=== PATIENT | male | born 1975 | race Caucasian/White ===

== ENCOUNTER 2017-03-09 06:40 | Emergency (ER) | payer OTHER ==
[2017-03-09 07:11] LABS: CHLORIDE,CL 105 mmol/L (98-110); SODIUM,NA 141 mmol/L (136-146)
[2017-03-09] MEDS ORDERED: Diltiazem 25 MG/5 ML SDV IVPUSH ONE (07:12)
[2017-03-09] MEDS ORDERED: Sodium Chloride 0.9% 1,000 ML IV ONE (07:13)
--- NOTE | 2017-03-09 08:49 | EDM.PDOC ---
ED HPI GENERAL MEDICAL PROBLEM - General Chief Complaint: Cardiovascular Problem Stated Complaint: IRREGULAR HEARTBEAT Time Seen by Provider: 03/09/17 08:45 Source of Information: Reports: Patient - History of Present Illness INITIAL COMMENTS - FREE TEXT/NARRATIVE: HISTORY AND PHYSICAL: History of present illness: [Patient with history of atrial fibrillation and anxiety presents anxious with atrial fibrillation with RVR rate into the 140s, he is in no distress had complained of some palpitation and chest tightness earlier prior to arrival he had taken his last clonazepam. 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 Past medical history: As per history of present illness and as reviewed below otherwise noncontributory. Surgical history: As per history of present illness and as reviewed below otherwise noncontributory. Social history: No reported history of drug or alcohol abuse. Family history: As per history of present illness and as reviewed below otherwise noncontributory. Physical exam: HEENT: Atraumatic, normocephalic, pupils reactive, negative for conjunctival pallor or scleral icterus, mucous membranes moist, throat clear, neck supple, nontender, trachea midline. Lungs: Clear to auscultation, breath sounds equal bilaterally, chest nontender. Heart: S1S2, regular, negative for clicks, rubs, or JVD. Abdomen: Soft, nondistended, nontender. Negative for masses or hepatosplenomegaly. Negative for costovertebral tenderness. Pelvis: Stable nontender. Genitourinary: Deferred. Rectal: Deferred. Extremities: Atraumatic, negative for cords or calf pain. Neurovascular unremarkable. Neuro: Awake, alert, oriented. Cranial nerves II through XII unremarkable. Cerebellum unremarkable. Motor and sensory unremarkable throughout. Exam nonfocal. Diagnostics: [CBC CMP cardiac enzymes EKG A. fib with RVR Repeat EKG] normal sinus rhythm Therapeutics: [1 L normal saline bolus Cardizem was ordered but not provided as he converted prior to initiating this medication Clonazepam 1 mg taken by patient which he takes 1 mg as needed provided by his primary care ] Impression: [A. fib with RVR converted distress normal sinus rhythm] Definitive disposition and diagnosis as appropriate pending reevaluation and review of above. chest Pain Score (Numeric/FACES): 3 - Related Data Allergies Allergy/AdvReac Type Severity Reaction Status Date / Time No Known Allergies Allergy Verified 03/09/17 06:43 Home Meds: Home Meds DULoxetine [Cymbalta] 60 mg PO DAILY 03/09/17 [History] clonazePAM [Clonazepam] 1 mg PO ASDIRECTED PRN 03/09/17 [History] Past Medical History - Past Health History Medical/Surgical History: Denies Medical/Surgical History Cardiovascular History: Reports: Arrhythmia, Other (See Below) Other Cardiovascular History: 14 years ago Psychiatric History: Reports: Panic Attack, PTSD Social & Family History - Family History Family Medical History: Noncontributory - Tobacco Use Smoking Status *Q: Never Smoker - Caffeine Use Caffeine Use: Reports: None - Recreational Drug Use Recreational Drug Use: No ED ROS GENERAL - Review of Systems Review Of Systems: ROS reveals no pertinent complaints other than HPI. ED EXAM, GENERAL - Physical Exam Exam: See Below Course - Vital Signs Last Recorded V/S: Last Vital Signs Temp 97 F 03/09/17 06:40 Pulse 76 03/09/17 07:40 Resp 16 03/09/17 07:40 BP 125/84 03/09/17 07:40 Pulse Ox 98 03/09/17 07:40 - Orders/Labs/Meds Orders: Active Orders 24 hr Category Date Time Status EKG Documentation Completion [RC] STAT Care 03/09/17 06:50 Active Chest 1V Frontal [CR] Stat Exams 03/09/17 06:50 Taken Labs: Laboratory Tests 03/09/17 03/09/17 03/09/17 Range/Units 06:45 06:45 06:45 WBC 5.86 (4.0-11.0) K/uL RBC 5.51 (4.50-5.90) M/uL Hgb 16.7 (13.0-17.0) g/dL Hct 47.8 (38.0-50.0) % MCV 86.8 (80.0-98.0) fL MCH 30.3 (27.0-32.0) pg MCHC 34.9 (31.0-37.0) g/dL RDW Std Deviation 42.6 (28.0-62.0) fl RDW Coeff of Jude 14 (11.0-15.0) % Plt Count 269 (150-400) K/uL MPV 10.00 (7.40-12.00) fL Neut % (Auto) 52.2 (48.0-80.0) % Lymph % (Auto) 31.9 (16.0-40.0) % [place] % (Auto) 13.0 (0.0-15.0) % Eos % (Auto) 2.6 (0.0-7.0) % Baso % (Auto) 0.3 (0.0-1.5) % Neut # (Auto) 3.1 (1.4-5.7) K/uL Lymph # (Auto) 1.9 (0.6-2.4) K/uL [place] # (Auto) 0.8 (0.0-0.8) K/uL Eos # (Auto) 0.2 (0.0-0.7) K/uL Baso # (Auto) 0.0 (0.0-0.1) K/uL Nucleated RBC % 0.0 /100WBC Nucleated RBCs # 0 K/uL INR 1.05 (0.86-1.11) Sodium 141 (136-146) mmol/L Potassium 4.6 (3.5-5.1) mmol/L Chloride 105 (98-110) mmol/L Carbon Dioxide 24 (21-31) mmol/L BUN 12 (6.0-23.0) mg/dL Creatinine 1.0 (0.6-1.5) mg/dL Est Cr Clr Drug Dosing 108.86 mL/min Estimated GFR (MDRD) > 60.0 ml/min Glucose 108 (60-110) mg/dL Calcium 10.2 (8.8-10.8) mg/dL Total Bilirubin 0.5 (0.1-1.5) mg/dL AST 24 (5-40) IU/L ALT 33 (8-54) IU/L Alkaline Phosphatase 90 (40-150) Troponin I < 0.10 (0.0-0.29) NG/ML Total Protein 7.9 (6.0-8.0) g/dL Albumin 4.6 (3.5-5.0) g/dL Globulin 3.3 (2.0-3.5) g/dL Albumin/Globulin Ratio 1.4 (1.3-2.8) Meds: Medications Discontinued Medications Generic Name Dose Route Start Last Admin Trade Name Michiq PRN Reason Stop Dose Admin Diltiazem HCl 20 mg 03/09/17 07:12 03/09/17 07:56 Diltiazem IVPUSH 03/09/17 07:13 Not Given ONETIME ONE Sodium Chloride 1,000 mls @ 999 mls/hr 03/09/17 07:13 03/09/17 07:49 Normal Saline IV 03/09/17 08:13 999 mls/hr STAT ONE Administration Departure - Departure Time of Disposition: 08:48 Disposition: Home, Self-Care 01 Condition: Good Clinical Impression: Atrial fibrillation, Anxiety Referrals: PCP,None [Primary Care Provider] - Additional Instructions: Medication as directed Return if symptoms persist or worsen Follow-up with primary care in 2 weeks The following information is given to patients seen in the emergency department who are being discharged to home. This information is to outline your options for follow-up care. We provide all patients seen in our emergency department with a follow-up referral. The need for follow-up, as well as the timing and circumstances, are variable depending upon the specifics of your emergency department visit. If you don't have a primary care physician on staff, we will provide you with a referral. We always advise you to contact your personal physician following an emergency department visit to inform them of the circumstance of the visit and for follow-up with them and/or the need for any referrals to a consulting specialist. The emergency department will also refer you to a specialist when appropriate. This referral assures that you have the opportunity for follow-up care with a specialist. All of these measure are taken in an effort to provide you with optimal care, which includes your follow-up. Under all circumstances we always encourage you to contact your private physician who remains a resource for coordinating your care. When calling for follow-up care, please make the office aware that this follow-up is from your recent emergency room visit. If for any reason you are refused follow-up, please contact the [facility] emergency department at and asked to speak to the emergency department charge nurse.
--- NOTE | 2017-03-09 14:50 | CR ---
EXAM DATE: 03/09/17 PATIENT'S AGE: 41 Patient: CLIFFORD GAYLE Facility: [place], [place] Site . Site : 1975 Study: XRay Chest [id number]/17/2018 7:03:10 AM Ordering Physician: Doctor Hartley Final Report: INDICATION: palpitations TECHNIQUE: Chest 1 view. COMPARISON: None FINDINGS: Cardiovascular and mediastinum: Heart size and vasculature are normal in caliber and appearance. Mediastinum is within normal limits. Lungs and pleural space: Lungs are clear. No sign of infiltrate or mass. No sign of pleural effusion. No pneumothorax. Bones and soft tissues: No significant findings. IMPRESSION: Unremarkable chest. Dictated by: Jack Curry MD @ 03/09/2017 07:11:32 (Electronic Signature) Report Signed by Proxy. HUTCHINGS PSYCHIATRIC CENTERChacho
== END 2017-03-09 08:58 | disposition home or self-care (01) ==
LOC: MW.ED 06:40
DX: I48.91 Unspecified atrial fibrillation (principal); F41.9 Anxiety disorder, unspecified; Z79.899 Other long term (current) drug therapy
CPT/HCPCS: 36415; 71045; 80053; 84484; 85025; 85610; 93005; 96360; 99285; J7040; 99284

== ENCOUNTER 2017-04-09 11:20 | Emergency (ER) | payer OTHER ==
[2017-04-09] MEDS ORDERED: HYDROmorphone 2 MG/ML Syringe IVPUSH ONE (11:30)
--- NOTE | 2017-04-09 11:35 | EDM.PDOC ---
ED HPI GENERAL MEDICAL PROBLEM - General Chief Complaint: Upper Extremity Injury/Pain Stated Complaint: DISLOCATED SHOULDER Time Seen by Provider: 04/09/17 11:34 Source of Information: Reports: Patient - History of Present Illness INITIAL COMMENTS - FREE TEXT/NARRATIVE: HISTORY AND PHYSICAL: History of present illness: [Patient presents with a dislocated shoulder on the left after falling out of his truck No head injury or loss of consciousness previous dislocation same shoulder No fever nausea vomiting chills sweats no chest pain shortness breath headache dizziness palpitation about a urine symptoms ] Injury occurred at [employer], patient's boss/employers with him at current as they were going to lunch although this is not a Workmen' s Comp. injury Review of systems: As per history of present illness and below otherwise all systems reviewed and negative. Past medical history: As per history of present illness and as reviewed below otherwise noncontributory. Surgical history: As per history of present illness and as reviewed below otherwise noncontributory. Social history: No reported history of drug or alcohol abuse. Family history: As per history of present illness and as reviewed below otherwise noncontributory. Physical exam: HEENT: Atraumatic, normocephalic, pupils reactive, negative for conjunctival pallor or scleral icterus, mucous membranes moist, throat clear, neck supple, nontender, trachea midline. Lungs: Clear to auscultation, breath sounds equal bilaterally, chest nontender. Heart: S1S2, regular, negative for clicks, rubs, or JVD. Abdomen: Soft, nondistended, nontender. Negative for masses or hepatosplenomegaly. Negative for costovertebral tenderness. Pelvis: Stable nontender. Genitourinary: Deferred. Rectal: Deferred. Extremities: Atraumatic, negative for cords or calf pain. Neurovascular unremarkable. Left upper extremity step-off noted limb neurovascularly intact, post reduction remains neurovascularly intact Neuro: Awake, alert, oriented. Cranial nerves II through XII unremarkable. Cerebellum unremarkable. Motor and sensory unremarkable throughout. Exam nonfocal. Diagnostics: [Left shoulder complete, postreduction film ] Therapeutics: [Dilaudid 1 mg IV Valium 5 mg IV--not required hence not provided Sling for comfort Rest ice ibuprofen Follow-up with orthopedist in one week Reduction performed by myself with modified steels technique no complication no complaint ] Impression: [Left shoulder dislocation postreduction] Definitive disposition and diagnosis as appropriate pending reevaluation and review of above. Left Shoulder Pain Score (Numeric/FACES): 10 - Related Data Allergies Allergy/AdvReac Type Severity Reaction Status Date / Time Penicillins Allergy Cannot Verified 04/09/17 11:31 Remember Home Meds: Home Meds DULoxetine [Cymbalta] 60 mg PO DAILY 03/09/17 [History] clonazePAM [Clonazepam] 1 mg PO ASDIRECTED PRN 03/09/17 [History] Past Medical History - Past Health History Medical/Surgical History: Denies Medical/Surgical History Cardiovascular History: Reports: Arrhythmia, Other (See Below) Other Cardiovascular History: 14 years ago Psychiatric History: Reports: Panic Attack, PTSD Social & Family History - Family History Family Medical History: Noncontributory - Tobacco Use Smoking Status *Q: Never Smoker - Caffeine Use Caffeine Use: Reports: None - Recreational Drug Use Recreational Drug Use: No Review of Systems - Review of Systems Review Of Systems: ROS reveals no pertinent complaints other than HPI. ED EXAM, GENERAL - Physical Exam Exam: See Below Course - Vital Signs Last Recorded V/S: Last Vital Signs Temp 97.1 F 04/09/17 11:36 Pulse 108 H 04/09/17 11:36 Resp BP 134/89 04/09/17 11:36 Pulse Ox 98 04/09/17 11:36 - Orders/Labs/Meds Orders: Active Orders 24 hr Category Date Time Status Shoulder Comp Lt [CR] Stat Exams 04/09/17 11:32 Taken Shoulder Comp Lt [CR] Stat Exams 04/09/17 12:08 Taken Meds: Medications Discontinued Medications Generic Name Dose Route Start Last Admin Trade Name Freq PRN Reason Stop Dose Admin Diazepam 5 mg 04/09/17 11:30 Valium IV 04/09/17 11:31 ONETIME ONE Hydromorphone HCl 1 mg 04/09/17 11:30 04/09/17 11:46 Dilaudid IVPUSH 04/09/17 11:31 Not Given ONETIME ONE Hydromorphone HCl 1 mg 04/09/17 11:39 04/09/17 11:41 Dilaudid IV 04/09/17 11:40 1 mg ONETIME ONE Administration Hydromorphone HCl Confirm 04/09/17 11:38 04/09/17 11:42 Dilaudid Administered 04/09/17 11:39 Not Given Dose 1 mg .ROUTE .STK-MED ONE Departure - Departure Time of Disposition: 12:23 Disposition: Home, Self-Care 01 Condition: Good Clinical Impression: Dislocation of left shoulder joint - Discharge Information Referrals: PCP,None [Primary Care Provider] - Forms: ED Department Discharge Additional Instructions: Rest Ice 20 minute intervals 3 times daily as needed Ibuprofen 400 mg to 800 mg by mouth 3 times daily up to 10 days as needed Her comfort Right hand duty only Follow-up with orthopedist, call phone number below to schedule appropriate follow-up [facility] [address], [address] [place] [address] my orthopedic The following information is given to patients seen in the emergency department who are being discharged to home. This information is to outline your options for follow-up care. We provide all patients seen in our emergency department with a follow-up referral. The need for follow-up, as well as the timing and circumstances, are variable depending upon the specifics of your emergency department visit. If you don't have a primary care physician on staff, we will provide you with a referral. We always advise you to contact your personal physician following an emergency department visit to inform them of the circumstance of the visit and for follow-up with them and/or the need for any referrals to a consulting specialist. The emergency department will also refer you to a specialist when appropriate. This referral assures that you have the opportunity for follow-up care with a specialist. All of these measure are taken in an effort to provide you with optimal care, which includes your follow-up. Under all circumstances we always encourage you to contact your private physician who remains a resource for coordinating your care. When calling for follow-up care, please make the office aware that this follow-up is from your recent emergency room visit. If for any reason you are refused follow-up, please contact the [facility] emergency department at and asked to speak to the emergency department charge nurse. - My Orders Last 24 Hours: My Active Orders 04/09/17 11:32 Shoulder Comp Lt [CR] Stat - Assessment/Plan Last 24 Hours: My Active Orders 04/09/17 11:32 Shoulder Comp Lt [CR] Stat
[2017-04-09] MEDS ORDERED: HYDROmorphone 1 MG/ML Syringe ONE (11:38)
[2017-04-09] MEDS ORDERED: HYDROmorphone 1 MG/ML Syringe IV ONE (11:39)
--- NOTE | 2017-04-11 17:15 | CR ---
EXAM DATE: 04/09/17 PATIENT'S AGE: 41 Patient: CLIFFORD GAYLE Facility: [place], [place] Site . Site : 1975 Study: XRay Shoulder Left [id number]/17/2018 11:57:09 AM Ordering Physician: Doctor Hartley Final Report: Dislocation fell 2 views of the left shoulder. Findings : The humerus is inferior medially displaced relative to the glenoid fossa. AC joint within normal limits. There is no bony fractures seen. IMPRESSION: 1.Anterior glenohumeral dislocation. Dictated by Selina Turner MD @ Apr 09 2017 12:02PM (Electronic Signature) Report Signed by Proxy. MARIA L
--- NOTE | 2017-04-11 17:17 | CR ---
EXAM DATE: 04/09/17 PATIENT'S AGE: 41 Patient: CLIFFORD GAYLE Facility: [place], [place] Site . Site : 1975 Study: XRay Shoulder Left [id number]/17/2018 12:15:54 PM Ordering Physician: Ivan Salmon Final Report: INDICATION: Dislocation. Postreduction. TECHNIQUE: Two views left shoulder. COMPARISON: Left shoulder views earlier today. FINDINGS: The complete anteromedial dislocation of the left humeral head with regard to the glenoid as been reduced without residual dislocation or subluxation. Mild-to -moderate sized area of irregular sclerosis and lucency involving the superior lateral humeral head which is indented suspicious for a Hill-Sachs compression fracture deformity. Mild degenerative change in the left AC joint. Remainder negative. Dictated by Kem Hernandez MD @ Apr 09 2017 12:18PM (Electronic Signature) Report Signed by Proxy. MARIA L
== END 2017-04-09 12:58 | disposition home or self-care (01) ==
LOC: MW.ED 11:20
DX: S43.015A Anterior dislocation of left humerus, initial encounter (principal); F41.0 Panic disorder [episodic paroxysmal anxiety]; Z79.899 Other long term (current) drug therapy; Z88.0 Allergy status to penicillin; W17.89XA Other fall from one level to another, initial encounter; Y92.481 Parking lot as the place of occurrence of the external cause
CPT/HCPCS: 23650; 73030; 96374; 99283; J1170; 99282

== ENCOUNTER 2018-03-09 17:34 | Emergency (ER) | payer SELFPAY ==
[2018-03-09] MEDS ORDERED: Morphine 4 MG/ML Syringe IM ONE (17:53)
--- NOTE | 2018-03-09 17:57 | EDM.PDOC ---
ED HPI GENERAL MEDICAL PROBLEM - General Chief Complaint: Upper Extremity Injury/Pain Stated Complaint: LEFT SHOULDER PAIN Time Seen by Provider: 03/09/18 17:36 Source of Information: Reports: Patient History Limitations: Reports: No Limitations - History of Present Illness INITIAL COMMENTS - FREE TEXT/NARRATIVE: HISTORY AND PHYSICAL: History of present illness: Patient is a 42-year-old male who presents to the emergency room today with complaints of left shoulder pain. He states he had slipped and fallen on the ice landing on his left shoulder. Approximately one year ago he did have a shoulder dislocation which was successfully reduced per self. He also states that he has had a labrum tear of the left shoulder. Otherwise no problems at the affected extremity. He denies any numbness or tingling to the affected extremity. Limited range of motion as this does cause increased pain. Review of systems: As per history of present illness and below otherwise all systems reviewed and negative. Past medical history: As per history of present illness and as reviewed below otherwise noncontributory. Surgical history: As per history of present illness and as reviewed below otherwise noncontributory. Social history: See social history for further information Family history: As per history of present illness and as reviewed below otherwise noncontributory. Physical exam: General: Well-developed and well-nourished 42-year-old male. Alert and oriented. Nontoxic appearing and in no acute distress. HEENT: Atraumatic, normocephalic, pupils equal and reactive bilaterally, negative for conjunctival pallor or scleral icterus, mucous membranes moist, TMs normal bilaterally, throat clear, neck supple, nontender, trachea midline. No drooling or trismus noted. No meningeal signs. No hot potato voice noted. Lungs: Clear to auscultation, breath sounds equal bilaterally, chest nontender. Heart: S1S2, regular rate and rhythm without overt murmur Abdomen: Soft, nondistended, nontender. Negative for masses or hepatosplenomegaly. Negative for costovertebral tenderness. Pelvis: Stable nontender. Genitourinary: Deferred. Rectal: Deferred. Skin: Intact, warm, dry. No lesions or rashes noted. Extremities: Limited range of motion of the left shoulder as this does cause increased pain. Strong radial pulse. Capillary refill less than 3 seconds. Strong grasp. No clavicle or scapular pain. No pain to the humerus, elbow or forearm. negative for cords or calf pain. Neurovascular unremarkable. Neuro: Awake, alert, oriented. Cranial nerves II through XII unremarkable. Cerebellum unremarkable. Motor and sensory unremarkable throughout. Exam nonfocal. Notes: Consent was reviewed and signed by patient. Procedure was explained to patient in great detail, he is agreeable for closed reduction. Unsuccessful with attempt. RT called to be at bedside. Secondary attempt completed and successful by Dr Monroy. Medications were directed by Dr Monroy using IV fentanyl, Versed and propofol. Vital signs remain stable. Medications were reversed using Romazicon and Narcan. Patient alert and oriented but drowsy. RT, nursing and provider at bedside until he is fully recovered. Vital signs continued to remain stable. Postreduction film was obtained. Thorough education was given to patient and friend at bedside. He will follow-up with the orthopedic provider for further evaluation and management. Diagnostics: X-ray, Post reduction x-ray Therapeutics: Morphine IM, Sling, Shoulder Immobilizer Reducation: Versed, Propofol, Fentyl, Romazicon, Narcan Prescription: None Impression: Left shoulder dislocation Plan: 1. Rest and ice the painful area as able. Please use the shoulder immobilizer as we discussed. 2. Tylenol and/or ibuprofen as needed for pain management. 3. Please call the orthopedic provider tomorrow for follow-up. Return to the ED as needed and as discussed. Definitive disposition and diagnosis as appropriate pending reevaluation and review of above. Left Shoulder Pain Score (Numeric/FACES): 5 - Related Data Allergies Allergy/AdvReac Type Severity Reaction Status Date / Time Penicillins Allergy Cannot Verified 03/09/18 17:46 Remember Home Meds: Home Meds clonazePAM [Clonazepam] 1 mg PO ASDIRECTED PRN 03/09/17 [History] Past Medical History - Past Health History Medical/Surgical History: Denies Medical/Surgical History Cardiovascular History: Reports: Arrhythmia, Other (See Below) Other Cardiovascular History: 14 years ago; cardiac ablation Psychiatric History: Reports: Panic Attack, PTSD - Infectious Disease History Infectious Disease History: Reports: Chicken Pox - Past Surgical History Cardiovascular Surgical History: Reports: Cardiac Ablation Musculoskeletal Surgical History: Reports: Other (See Below) Other Musculoskeletal Surgeries/Procedures:: left shoulder pins; hx of labrum repair and shoulder dislocation Social & Family History - Family History Family Medical History: Noncontributory - Tobacco Use Smoking Status *Q: Never Smoker Second Hand Smoke Exposure: No - Caffeine Use Caffeine Use: Reports: None - Recreational Drug Use Recreational Drug Use: No Review of Systems - Review of Systems Review Of Systems: ROS reveals no pertinent complaints other than HPI. ED EXAM, GENERAL - Physical Exam Exam: See Below (See dictation) Course - Vital Signs Last Recorded V/S: Last Vital Signs Temp 97.5 F 03/09/18 17:47 Pulse 94 03/09/18 17:47 Resp 16 03/09/18 17:47 BP 137/92 H 03/09/18 17:47 Pulse Ox 97 03/09/18 17:47 - Orders/Labs/Meds Orders: Active Orders 24 hr Category Date Time Status Shoulder Comp Lt [CR] Stat Exams 03/09/18 19:58 Ordered fentaNYL [Sublimaze] Med 03/09/18 19:03 Active 100 mcg IVPUSH Q5M PRN Medication Orders Fentanyl (Sublimaze) 100 mcg IVPUSH Q5M PRN PRN Reason: Pain Meds: Medications Generic Name Dose Route Start Last Admin Trade Name Freq PRN Reason Stop Dose Admin Fentanyl 100 mcg 03/09/18 19:03 Sublimaze IVPUSH Q5M PRN Pain Discontinued Medications Generic Name Dose Route Start Last Admin Trade Name Freq PRN Reason Stop Dose Admin Fentanyl Confirm 03/09/18 19:27 Sublimaze Administered 03/09/18 19:28 Dose 100 mcg .ROUTE .STK-MED ONE Flumazenil 5 mg 03/09/18 19:03 Romazicon IVPUSH 03/09/18 19:04 ONETIME ONE Hydromorphone HCl 1 mg 03/09/18 18:49 Dilaudid IV 03/09/18 18:50 ONETIME ONE Hydromorphone HCl Confirm 03/09/18 19:11 Dilaudid Administered 03/09/18 19:12 Dose 1 mg .ROUTE .STK-MED ONE Sodium Chloride 1,000 mls @ 999 mls/hr 03/09/18 18:24 03/09/18 18:59 Normal Saline IV 03/09/18 19:24 999 mls/hr STAT ONE Administration Midazolam HCl 5 mg 03/09/18 19:03 Versed 5 Mg/Ml IVPUSH 03/09/18 19:04 ONETIME ONE Midazolam HCl Confirm 03/09/18 19:08 Versed 1 Mg/Ml Administered 03/09/18 19:09 Dose 6 mg .ROUTE .STK-MED ONE Midazolam HCl Confirm 03/09/18 19:21 Versed 1 Mg/Ml Administered 03/09/18 19:22 Dose 6 mg .ROUTE .STK-MED ONE Midazolam HCl Confirm 03/09/18 19:30 Versed 1 Mg/Ml Administered 03/09/18 19:31 Dose 6 mg .ROUTE .STK-MED ONE Morphine Sulfate 4 mg 03/09/18 17:53 03/09/18 18:03 Morphine IM 03/09/18 17:54 4 mg ONETIME ONE Administration Morphine Sulfate 2 mg 03/09/18 18:24 03/09/18 18:58 Morphine IVPUSH 03/09/18 18:25 2 mg ONETIME ONE Administration Naloxone HCl 0.4 mg 03/09/18 19:03 Narcan IVPUSH 03/09/18 19:04 ONETIME ONE Ondansetron HCl 4 mg 03/09/18 18:24 03/09/18 18:58 Zofran IVPUSH 03/09/18 18:25 4 mg ONETIME ONE Administration Propofol Confirm 03/09/18 19:28 Diprivan 20 Ml Administered 03/09/18 19:29 Dose 200 mg .ROUTE .STK-MED ONE Departure - Departure Time of Disposition: 17:56 Disposition: Home, Self-Care 01 Clinical Impression: Shoulder dislocation Qualifiers: Encounter type: initial encounter Laterality: left Qualified Code(s): S43.005A - Unspecified dislocation of left shoulder joint, initial encounter - Discharge Information Instructions: Shoulder Dislocation, [id number] Referrals: PCP,None [Primary Care Provider] - Forms: ED Department Discharge Additional Instructions: The following information is given to patients seen in the emergency department who are being discharged to home. This information is to outline your options for follow-up care. We provide all patients seen in our emergency department with a follow-up referral. The need for follow-up, as well as the timing and circumstances, are variable depending upon the specifics of your emergency department visit. If you don't have a primary care physician on staff, we will provide you with a referral. We always advise you to contact your personal physician following an emergency department visit to inform them of the circumstance of the visit and for follow-up with them and/or the need for any referrals to a consulting specialist. The emergency department will also refer you to a specialist when appropriate. This referral assures that you have the opportunity for follow-up care with a specialist. All of these measure are taken in an effort to provide you with optimal care, which includes your follow-up. Under all circumstances we always encourage you to contact your private physician who remains a resource for coordinating your care. When calling for follow-up care, please make the office aware that this follow-up is from your recent emergency room visit. If for any reason you are refused follow-up, please contact the [facility] Emergency Department at and asked to speak to the emergency department charge nurse. [facility] [address] [place], [place] [id number] [address] [address] [facility] - [facility] Professional Building [address] [place] [address] [address] [place] [address] 1. Rest and ice the painful area as able. Please use the shoulder immobilizer as we discussed. 2. Tylenol and/or ibuprofen as needed for pain management. 3. Please call the orthopedic provider tomorrow for follow-up. Return to the ED as needed and as discussed. - My Orders Last 24 Hours: My Active Orders 03/09/18 19:03 fentaNYL [Sublimaze] 100 mcg IVPUSH Q5M PRN 03/09/18 19:58 Shoulder Comp Lt [CR] Stat - Assessment/Plan Last 24 Hours: My Active Orders 03/09/18 19:03 fentaNYL [Sublimaze] 100 mcg IVPUSH Q5M PRN 03/09/18 19:58 Shoulder Comp Lt [CR] Stat
[2018-03-09] MEDS ORDERED: Morphine 2 MG/ML Syringe IVPUSH ONE (18:24)
[2018-03-09] MEDS ORDERED: Ondansetron 4 MG/2 ML SDV IVPUSH ONE (18:24)
[2018-03-09] MEDS ORDERED: Sodium Chloride 0.9% 1,000 ML IV ONE (18:24)
--- NOTE | 2018-03-09 18:45 | CR ---
INDICATION: Trauma, dislocation TECHNIQUE: Two views left shoulder, 6 p.m. COMPARISON: None FINDINGS: Bones: Alignment is normal. No fractures or bone lesions. Joint spaces: Anterior dislocation of the humeral head. Soft tissues: Unremarkable. IMPRESSION: Anterior dislocation left humeral head. Post reduction views recommended. Dictated by Cliff Humphrey MD @ 03/09/2018 6:43:54 PM Dictated by: Cliff Humphrey MD @ 03/09/2018 18:43:56 (Electronically Signed)
[2018-03-09] MEDS ORDERED: HYDROmorphone 2 MG/ML SDV IV ONE (18:49)
[2018-03-09] MEDS ORDERED: Midazolam 5 MG/ML SDV IVPUSH ONE (19:03)
[2018-03-09] MEDS ORDERED: fentaNYL 100 MCG/2 ML SDV IVPUSH PRN (19:03)
[2018-03-09] MEDS ORDERED: Naloxone 0.4 MG/ML Syringe IVPUSH ONE (19:03)
[2018-03-09] MEDS ORDERED: Flumazenil 0.1 MG/ML 5 ML MDV IVPUSH ONE (19:03)
[2018-03-09] MEDS ORDERED: Midazolam 1 MG/ML 2 ML SDV ONE ×3 (19:08→19:30)
[2018-03-09] MEDS ORDERED: HYDROmorphone 1 MG/ML Syringe ONE (19:11)
[2018-03-09] MEDS ORDERED: fentaNYL 100 MCG/2 ML SDV ONE (19:27)
[2018-03-09] MEDS ORDERED: Propofol 200 MG/20 ML SDV ONE (19:28)
--- NOTE | 2018-03-09 20:29 | CR ---
Indication: Post reduction Technique: A single view of the left shoulder Comparison: 03/09/2018 at 5:44 p.m. Findings/Impression: Status post reduction of the previously seen anterior left shoulder dislocation. A displaced fracture is not seen on this single view. Mild acromioclavicular arthrosis. Dictated by Dominguez Vides MD @ 03/09/2018 8:27:50 PM Dictated by: Dominguez Vides MD @ 03/09/2018 20:27:57 (Electronically Signed)
== END 2018-03-09 21:14 | disposition home or self-care (01) ==
LOC: MW.ED 17:34
DX: S43.005A Unspecified dislocation of left shoulder joint, initial encounter (principal); Z88.0 Allergy status to penicillin; W00.0XXA Fall on same level due to ice and snow, initial encounter
CPT/HCPCS: 73020; 73030; 96361; 96372; 96374; 96375; 99284; J2270; J2405; J7040; 99283